=== PATIENT | female | born 1965 | race Caucasian/White ===

== ENCOUNTER 2018-04-04 19:19 | Emergency (ER) | payer OTHER ==
[~2018-04-04] VITALS: Ht 167.6 cm; Wt 85.7 kg
[2018-04-04 19:26] VITALS: BP 124/80
[2018-04-04] MEDS ORDERED: NABUMETONE 750750 M1 PO (19:42)
[2018-04-04] MEDS ORDERED: TRAMADOL 50 MG50 MG PO (19:42)
[2018-04-04] MEDS ORDERED: PENICILLIN V P500 MG PO (19:42)
== END 2018-04-04 19:50 | disposition home or self-care (01) ==
LOC: M.ERS 19:19
DX: K04.7 Periapical abscess without sinus (principal)